=== PATIENT | male | born 1935 | race Caucasian/White ===

== ENCOUNTER 2016-07-21 12:24 | Emergency (ER) | payer OTHER ==
[2016-07-21 12:31] VITALS: BP 121/71; BMI 23.6
--- NOTE | 2016-07-21 12:41 | DR.GENAD ---
HPI - PCP Primary Care Physician: DIEGO - Complaint/Symptoms Chief Complaint:: SPOUSE STATES PT. HAS BEEN HAVING EPISODES TO WHERE HE SHAKES SOMETIMES AND BLACKS OUT. THEY WERE AT [facility] IN [place] LAST TUESDAY WHEN PT. HAD ONE AND THEY PERFORMED TEST AND RAN AN EEG & EVERYTHING WAS NORMAL. THAT WAS THE 3RD EPSIODE PT. HAS EXPERIENCED. PT. HAD AN EPISODE LAST NIGHT WHERE HE FELL, HITTING HIS HEAD. PT. C/O DIZZINESS BUT NO PAIN. PT. SAYS THAT BEFORE THE EPISODE LAST NIGHT, HE BECAME DIAPHORETIC. - Source History Provided: Patient - Mode of Arrival Mode of Arrival: Ambulatory - Timing Onset of Chief Complaint: 07/15/16 PMH - PMH Past Medical History: Yes Past Medical History: GERD Past Medical History Comment: PARKINSON'S, PROSTATE Past Surgical History: Yes Surgical History: Other Past Surgical History Comment: DBS, CATARACTS, HERNIA REPAIR - Family History History of Family Medical Conditions: Yes Family Medical History: Diabetes Mellitus - Social History Does patient currently use any type of tobacco product: No Have you used tobacco products in the last 12 months: No Type of Tobacco Use: None Does any household member use tobacco: No Alcohol Use: None Do you use any recreational Drugs:: No Lives With: Spouse Lives Where: Home - infectious screening In the last 2 months have you had wt loss of >10#?: NO Have you had fever, night sweats or hemotysis?: No Have you traveled outside the country in the last 6 months?: No Isolation: Standard ROS - Review of Systems Constitutional: No Symptoms Reported Eyes: No Symptoms Reported ENTM: No Symptoms Reported Respiratoy: No Symptoms Reported Cardiovascular: No Symptoms Reported Gastrointestinal/Abdominal: No Symptoms Reported Genitourinary: No Symptoms Reported Neurological: Other (Parkinson ) Musculoskeletal: No Symptoms Reported Integumentary: No Symptoms Reported Hematologic/Lymphatic: No Symptoms Reported Endocrine: No Symptoms Reported Psychiatric: No Symptoms Reported All Other Systems: Reviewed and Negative PE - Vital Signs Vitals: Temperature 97.8 F Pulse Rate 59 Respiratory Rate 17 Blood Pressure 121/71 O2 Sat by Pulse Oximetry 96 - General Limitations: Physical Limitation (Parkinson) General Appearance: Alert, In No Apparent Distress - Head Head Exam: Normal Inspection, Atraumatic, Other (Nodules x 2 where probes to controll symptoms of Parkinson Disease) - Eyes Eye exam: Normal Appearance - ENT ENT Exam: Normal Exam External Ear Exam: Normal External Inspection TM/Canal Exam: Bilateral Normal Nose Exam: Normal Nose Exam Mouth Exam: Normal Inspection Throat Exam: Normal Inspection - Neck Neck Exam: Normal Inspection - Chest Chest Inspection: Normal Inspection - Respiratory Respiratory Exam: Normal Lung Sounds Bilat Respiratory Exam: Bilateral Clear to Auscultation - Cardiovascular Cardiovascular Exam: Regular Rate, Normal Rhythm - Abdominal Exam Abdominal Exam: Normal Inspection Abdominal Tenderness: negative: RUQ, RLQ, LUQ, LLQ, Epigastrium, Suprapubic, Diffuse, Mild, Moderate, Severe, Other - Extremities Extremities Exam: Normal Inspection, Full ROM - Back Back Exam: Normal Inspection - Psychiatric Psychiatric Exam: Normal Affect, Normal Mood - Skin Skin Exam: Warm, Dry, Intact ROR - XRAY XRAY Interpreted by: Radiologist (CT Brain: Chronic changes without definite acute intracranial process) - Diagnosis Discharge Problem: Fall - Discharge Plan Condition: Stable - Follow ups/Referrals Follow ups/Referrals: LZIZIE CORTEZ [Primary Care Provider] - 3 days - Instructions
== END 2016-07-21 15:20 | disposition home or self-care (01) ==
LOC: ER 12:42
DX: G20 Parkinson's disease (principal); R55 Syncope and collapse; W19.XXXA Unspecified fall, initial encounter
CPT/HCPCS: 99282; 99283